=== PATIENT | female | born 1980 | race Caucasian/White ===

== ENCOUNTER 2017-08-27 10:46 | Emergency (ER) | payer OTHER ==
[~2017-08-27] VITALS: Ht 162.6 cm; Wt 86.9 kg
[~2017-08-27 10:46] MED LIST: BACT800T5 PO; CEPH500C3 PO
[2017-08-27 10:49] VITALS: BP 119/59; PULSE 93; RESP 16; TEMP 98.8; O2SAT 98
--- NOTE | 2017-08-27 11:13 | PD ---
HPI Chief Complaint: Skin Problem Time Seen by Provider: 11:04 Travel History International Travel<30 days: No Contact w/Intl Traveler<30days: No Traveled to known affect area: No History of Present Illness HPI 37-year-old white female with a history of abscesses and severe acne presents to the emergency department with a "boil" on her right lateral buttocks. This one has been present for about 2 months and she has tried Epsom salts soaks and as been unable to express fluids from the site. She says that she has had these before but never this bad and is concerned that it will worsen if not treated. She describes pain as moderate and increasing. He says she has an appointment with a care professionals next week and he will determine whether or not she is placed on antibiotic for her severe acne. She denies fevers, chills, chest pain, shortness of breath, dental pain, or any other complaints. PFSH Past Medical History Diminished Hearing: No ?: Not LMP: 08/23/17 Past Surgical History Appendectomy: Yes Social History Alcohol Use: Yes (occ) Tobacco Use: Yes Substance Use: Yes (weed ) Allergies-Medications (Allergen,Severity, Reaction): Coded Allergies: No Known Allergies (Unverified , 08/27/17) Reported Meds & Prescriptions Reported Meds & Active Scripts Active No Active Prescriptions or Reported Medications Review of Systems Except as stated in HPI: all other systems reviewed are Neg Physical Exam Narrative GENERAL: Well-nourished, well-developed patient. SKIN: Focused skin assessment warm/dry. Multiple areas of crater-type scars on lower back, buttocks, and legs. Right buttocks with 5cm round lesion with erythema,central fluctuance with surrounding induration. HEAD: Normocephalic. EYES: No scleral icterus. No injection or drainage. NECK: Supple, trachea midline. No JVD or lymphadenopathy. CARDIOVASCULAR: Regular rate and rhythm without murmurs, gallops, or rubs. RESPIRATORY: Breath sounds equal bilaterally. No accessory muscle use. MUSCULOSKELETAL: No cyanosis, or edema. BACK: Nontender without obvious deformity. No CVA tenderness. Data Data Last Documented VS Vital Signs Date Time Temp Pulse Resp B/P (MAP) Pulse Ox O2 Delivery O2 Flow Rate FiO2 08/27/17 10:49 98.8 93 16 119/59 (79) 98 Orders Orders Lidocaine 1% Inj (50 Ml) (Xylocaine 1% I (08/27/17 12:00) Ibuprofen (Motrin) (08/27/17 12:00) MDM Medical Decision Making Medical Screen Exam Complete: Yes Emergency Medical Condition: Yes Differential Diagnosis Right buttocks abscess versus cellulitis versus neurosyphilis Narrative Course 37-year-old of the female presents with lesion on right buttocks for 2 months. Says she has tried multiple things to relieve the lesion but has been unsuccessful. She says she has had these before but never one that has lasted 2 months. She normally does not receive antibiotics for these and plans on going to the care professionals next week. Because she does have a follow up and her history of abscesses, I will not place her on antibiotics. I do not see any indication of infectious process at this time. She is advised when to return to the ED- signs of infection, worsening of abscess, development of fever/chills. Procedures Procedure Narrative Incision and drainage LOCATION: Right buttocks LENGTH: 5 cm round with central fluctuance and 1 cm of induration surrounding Central, fluctuant area was anesthesized with lidocaine 1%. A #11 blade was used to incise approx 1cm. Malpodorous, bloody, purulent fluid easily expressed. Irrigated with normal saline. 2cm iodoform placed in wound as wick Diagnosis Primary Impression: Abscess Additional Instructions: Change dressings several times a day as this will continue to drain. It is imperative that you follow-up with the care professionals next week. If you develop increased redness, tenderness, fever, chills return to emergency department for further treatment and evaluation. You have a piece of gauze that may be removed tomorrow. It may fall out on its own and that's ok. If site becomes larger, more red, or pain worsens, start the antibiotics I have given you today. Scripts Cephalexin (Keflex) 500 Mg Capsule 500 MG PO TID for Infection for 7 Days, CAP 0 Refills Prov: Anna Bojorquez 08/27/17 Sulfamethoxazole-Trimethoprim (Bactrim DS) 800-160 Mg Tab 1 TAB PO BID for Infection, #14 TAB 0 Refills Prov: Anna Bojorquez 08/27/17 Disposition: 01 DISCHARGE HOME Condition: Stable Anna Bojorqeuz Aug 27, 2017 11:13
[2017-08-27] MEDS ORDERED: BACT800T5 PO ×2 (11:58→12:00)
[2017-08-27] MEDS ORDERED: LIDOCAINE HCL 1% 50 ML VIAL INFIL ONE (12:00)
[2017-08-27] MEDS ORDERED: IBUPROFEN 600 MG TAB PO ONE (12:00)
[2017-08-27] MEDS ORDERED: CEPH-460 PO (12:02)
== END 2017-08-27 12:07 | disposition home or self-care (01) ==
LOC: PHEFT 10:46
DX: L02.92 Furuncle, unspecified (principal)
CPT/HCPCS: 10061